=== PATIENT | male | born 1960 | race Asian ===

== ENCOUNTER 2016-12-31 06:35 | Day surgery (SDC) | payer OTHER ==
[2016-12-31] VITALS (7 sets, daily range): BP systolic 136–152; BP diastolic 72–86; PULSE 72–102; RESP 18–22; Ht 177.8 cm; Wt 74.0 kg
[~2016-12-31] VITALS: Ht 177.8 cm; Wt 74.0 kg
[2016-12-31] MEDS ORDERED: ASPI-664 PO (07:22)
[2016-12-31] MEDS ORDERED: BENA40TA41 PO (07:23)
[2016-12-31] MEDS ORDERED: GLIP-95 PO (07:23)
[2016-12-31] MEDS ORDERED: METF500T4 PO (07:24)
[2016-12-31] MEDS ORDERED: METO-407 PO (07:25)
[2016-12-31] MEDS ORDERED: OMEP20CA16 PO (07:26)
[2016-12-31] MEDS ORDERED: MOXIFLOXACIN 0.5% 3 ML OPH OPER SCH (08:00)
[2016-12-31] MEDS ORDERED: CYCLOPENTOLATE/PHENYLEPH 2 ML OPH OPER SCH (08:00)
[2016-12-31] MEDS ORDERED: TROPICAMIDE 1% 3 ML OPH ONE (08:04)
[2016-12-31] MEDS ORDERED: DICLOFENAC 0.1% 2.5 ML OPH ONE (08:04)
[2016-12-31] MEDS ORDERED: CARBACHOL 0.01% 1.5 ML OPH INJ ONE (08:26)
[2016-12-31] MEDS ORDERED: GENTAMICIN 80 MG INJ ONE (08:26)
[2016-12-31] MEDS ORDERED: CEFAZOLIN 1 GM INJ ONE (08:26)
[2016-12-31] MEDS ORDERED: LIDOCAINE 4% (MPF) 5 ML INJ ONE ×2 (08:27)
[2016-12-31] MEDS ORDERED: EPINEPHrine 1 MG INJ ONE (08:27)
[2016-12-31] MEDS ORDERED: METOCLOPRAMIDE 10 MG INJ IV PRN (08:30)
[2016-12-31] MEDS ORDERED: MIDAZOLAM 1 MG/ML 2 ML INJ IV PRN (08:30)
[2016-12-31] MEDS ORDERED: EPHEDrine SULFATE 50 MG/5 ML SYG IV PRN (08:30)
[2016-12-31] MEDS ORDERED: DIPHENHYDRAMINE 50 MG INJ IV PRN (08:30)
[2016-12-31] MEDS ORDERED: ONDANSETRON 4 MG INJ IV PRN (08:30)
[2016-12-31] MEDS ORDERED: OXYCODONE/ACETAMINOPHEN (5/325) TAB PO PRN ×2 (08:30)
[2016-12-31] MEDS ORDERED: hydrALAzine 20 MG INJ IV PRN (08:30)
[2016-12-31] MEDS ORDERED: FENTAnyl 50 MCG/ML VIAL IV PRN ×3 (08:30)
[2016-12-31] MEDS ORDERED: LABETALOL HCL 20MG INJ IV PRN (08:30)
[2016-12-31] MEDS ORDERED: MEPERIDINE 25 MG INJ IV PRN (08:30)
[2016-12-31] MEDS ORDERED: DEXAMETHASONE 4 MG/ML 1 ML INJ ONE (08:31)
[2016-12-31] MEDS ORDERED: PROPOFOL 20 ML ONE (09:05)
[2016-12-31] MEDS ORDERED: DEXAMETHASONE 4 MG/ML 1 ML INJ INJ ONE (09:34)
[2016-12-31] MEDS ORDERED: CEFAZOLIN 1 GM INJ INJ ONE (09:34)
[2016-12-31] MEDS ORDERED: CARBACHOL 0.01% 1.5 ML OPH INJ IO ONE (09:34)
--- NOTE | 2016-12-31 10:26 | SIPON ---
Date/Time of Note Date/Time of Note DATE: 12/31/16 TIME: 10:25 Operative Report Preoperative Diagnosis cataract od Postoperative Diagnosis same Operation/Procedure Performed cataract implant od Surgeon see signature line data assistant none Anesthesia: MAC Estimated blood loss: none Transfusion Required none Specimen none Grafts/Implants posterior chamber lens implantnone Complications none ANA MITCHELL MD Dec 31, 2016 10:26
--- NOTE | 2016-12-31 10:42 | OPR ---
DATE OF OPERATION: 12/31/2016 PREOPERATIVE DIAGNOSIS: Cataract, right eye. POSTOPERATIVE DIAGNOSIS: Cataract, right eye. OPERATION PERFORMED: Cataract extraction with lens implant, right eye. SURGEON: Ana Nair M.D. ANESTHESIA: Dr. Baeza. PROCEDURE: The patient was brought to the operating room and placed on the table with an IV in plac e and the patient attached to an parole supervisor. Oxygen was given via face mask. After some intravenous sedation was administered, local anesthesia was given using Xylocaine 2% with epinephrine, mixed with Marcaine 0.5%. This was given in a lid block and retrobulbar injection. The patient was then prepped and draped in the usual sterile manner. A wire lid speculum was inserted between the lids of the right eye. A Superblade was used to enter t he anterior chamber at the corneoscleral limbus at the 10:30 o'clock position. A separate incision w as made using a 3.0-mm keratome which entered the corneoscleral junction at the 12 o'clock position. Through this 3-mm opening, an irrigating cystotome was introduced into the anterior chamber. The ch sangeeta was filled with Provisc and an anterior capsulotomy was performed. Balanced salt solution was then used for hydrodissection of the lens. A phacoemulsification handpiece was then brought into th e field and introduced into the anterior chamber. The lens nucleus was emulsified using a deep groov e and cracking the nucleus into quadrants. Following this, each quadrant was aspirated and emulsifie d at the pupillary margin. After this was completed, the irrigation/aspiration handpiece was brought to the field, introduced i nto the posterior chamber, and the lens cortical material was removed. When this was completed, wilma tional Viscoat was injected into the anterior and posterior chambers. The 3-mm opening had its internal lips enlarged, and then the posterior chamber intraocular lens edi suring 20.0 diopters ([employer] model LI61A0) was then injected into the posterior chamber using the lens injector system. After the leading haptic was introduced into the capsular b ag and the lens optic was present in the center of the eye, the injector was removed and the trailin g haptic was grasped with non-toothed forceps and introduced into the capsular fold superiorly. A Si nskey hook was then used to rotate the intraocular lens so that the lips were oriented in the horizo ntal meridian. One 10-0 nylon suture was placed across the wound. Prior to tying, the irrigation/aspiration handpiece was reintroduced into the anterior chamber to re move the Provisc. Miochol was instilled to constrict the pupil, and then the 10-0 nylon suture was t ied. The ends were cut short and then the knot was buried. Then, 0.5 mL of dexamethasone and 0.5 mL of Ancef were injected into the sub-Tenon space in the infe rior fornix. Ciloxan drops were then placed on the surface of the eye. The speculum was removed and a patch was applied. The patient then left the operating room in satisfactory condition. Dictated By: ANA LI/HERMAN Conf#: [id number] DID#: [id number]
[2016-12-31] MEDS ORDERED: DICLOFENAC 0.1% 2.5 ML OPH OPER SCH (13:00)
[2016-12-31] MEDS ORDERED: TROPICAMIDE 1% 3 ML OPH OPER SCH (13:00)
[2016-12-31] MEDS ORDERED: SOD CHLORIDE 0.9% 500 ML IV ONE (13:00)
--- NOTE | 2017-01-01 06:39 | PREOPHP ---
DATE OF ADMISSION: 12/31/2016 HISTORY OF PRESENT ILLNESS: This 56-year-old patient is admitted for elective cataract surgery of t he right eye. The patient has a multiyear history of chronic open angle glaucoma of an advanced jazmin ure, present in both eyes. The patient also has a history of having had cataract surgery in the lef t eye 3 years ago. CURRENT MEDICATIONS: The patient is currently being admitted for elective cataract surgery of the r ight eye. CURRENT MEDICATIONS: Includes: Brimonidine, Timolol and latanoprost in both eyes as well as benazepril and metoprolol for systemic hypertension, metformin for afg-vmtrqbn-ohwtryatf diabetes mellitus and omeprazole. ALLERGIES: THERE ARE NO KNOWN ALLERGIES. PHYSICAL EXAMINATION: Visual acuity with best correction is 20/60 in the right eye and 20/30 in the left eye. Slit lamp examination reveals anterior cortical nuclear sclerotic and posterior subcapsu lar cataract in the right eye. The left eye has a posterior chamber intraocular lens in appropriate position. Applanation tonometry is 16 mmHg in the right eye. Examination of the retina reveals si gnificant disc cupping in the right eye. The macular region appears within normal limits. DIAGNOSIS: Cataract, right eye. PLAN: Cataract extraction with lens implant, right eye. The risks and alternatives to the surgery have been discussed with the patient as well as the limitation of visual improvement due to signific ant visual field changes caused by the chronic glaucoma in the right eye. The patient understands t his and agrees to proceed with surgery in hopes of improving central visual acuity. Dictated By: ANA LI/HERMAN Conf#: [id number] DID#: [id number] CC: ANA MITCHELL MD;*EndCC*
== END 2016-12-31 11:30 | disposition home or self-care (01) ==
LOC: SDS 06:35
PROVIDERS: ATTEND Ophthalmology
DX: H25.11 Age-related nuclear cataract, right eye (principal); I10 Essential (primary) hypertension; E11.9 Type 2 diabetes mellitus without complications
CPT/HCPCS: 66984; 82962; J0171; J0690; J1100; J1580; V2632; Z7512; Z7610